=== PATIENT | female | born 1995 | race Caucasian/White ===

== ENCOUNTER → 2020-06-24 12:35 | Outpatient (CLI) | payer OTHER, SELFPAY ==
--- NOTE | 2020-06-24 | DI.MRI.S_ITS ---
PROCEDURE: MR KNEE RT WO CON INDICATIONS: Pain below right knee joint TECHNIQUE: Noncontrast sagittal PD fast spin echo and T2 fast spin echo with fat saturation, sagittal 3-D FLASH with fat saturation; coronal T1 spin echo and PD fast spin echo with fat saturation, and axial PD fast spin echo with fat saturation through the knee. COMPARISON: None. FINDINGS: Image quality: Excellent. Menisci: Medial meniscus is intact. There is vertically oriented linear high T2 signal intensity traversing the anterior horn lateral meniscus, demonstrating superior and inferior articular surface extension (series 8, image 8), indicating radial tearing. Cruciate ligaments: The anterior and posterior cruciate ligaments appear intact. Medial structures: The medial collateral ligament appears intact. Visualized portions of the pes anserinus tendons appear normal. No abnormal bursal fluid. Lateral structures: The lateral collateral ligament, long and short heads of the biceps femoris tendon appear intact. The popliteus tendon appears normal. Iliotibial band appears normal. Anterior structures: The quadriceps and patellar tendons appear intact. Patellar alignment is normal. No femoral trochlear dysplasia or ventral trochlear prominence. Mild edema in the superolateral aspect of the infrapatellar fat pad. Bones and cartilage: No bone marrow contusions or fractures. There is a 12 mm diameter region of moderate to high-grade articular cartilage loss overlying the patellar apex and medial facet. Mild articular cartilage loss diffusely overlies the weight-bearing aspects of the medial femoral condyle and medial tibial plateau. Joint space: There is physiologic knee joint fluid. Trace Duncan's cyst. Normal appearing synovial plicae are incidentally noted. IMPRESSION: 1. Subtle tear of the anterior horn lateral meniscus. 2. Tricompartmental osteoarthritis with associated articular cartilage loss. 3. Findings consistent with lateral patellofemoral friction syndrome in the appropriate clinical setting, with associated patellofemoral compartment articular cartilage loss. Dictated by: Jp Del Valle M.D. on 06/26/2020 at 8:39 Approved by: Jp Del Valle M.D. on 06/26/2020 at 8:41
--- NOTE | 2020-06-24 | DI.MRI.S_ITS ---
PROCEDURE: MR LOWER LEG RT WO CON INDICATIONS: Pain in right knee below joint TECHNIQUE: Noncontrast coronal and sagittal T1 spin echo and STIR; axial T1 spin echo and T2 fast spin echo with fat saturation through the right lower leg. COMPARISON: None. FINDINGS: Image quality: Excellent. Bones: Surface skin marker is placed over anterior aspect of proximal tibial shaft near tibial tuberosity/distal patellar tendon insertion. The visualized bone marrow demonstrates normal signal on all sequences. The overlying cortex appears intact. No fractures lines or intra-osseous lesions. Soft tissues: The scanned muscles demonstrate normal overall bulk and internal signal. Subcutaneous tissues appear normal as well. No soft tissue masses are present. Included portion of patellar tendon is intact. IMPRESSION: Unremarkable MRI examination of right lower leg. No finding to explain patient's symptoms. Dictated by: Eric Tello M.D. on 06/26/2020 at 8:49 Approved by: Eric Tello M.D. on 06/26/2020 at 8:53
== END ==
PROVIDERS: PCP Student in an Organized Health Care Education/Training Program; Referring Provider Student in an Organized Health Care Education/Training Program; Visit Provider Student in an Organized Health Care Education/Training Program
DX: M25.561 Pain in right knee (principal); S83.281A Other tear of lateral meniscus, current injury, right knee, initial encounter; M17.11 Unilateral primary osteoarthritis, right knee
CPT/HCPCS: 73718; 73721